=== PATIENT | male | born 1955 | race African-American/Black ===

== ENCOUNTER 2017-06-14 23:13 | Emergency (ER) | payer OTHER ==
[2017-06-14] MEDS ORDERED: DEXAMETHASONE SOD PHOS 20 MG/5 ML VIAL. (23:24)
[2017-06-14] MEDS: diphenhydrAMINE 50 MG/ML VIAL IVP (23:27)
[2017-06-14] MEDS: DEXAMETHASONE SOD PHOS 4 MG/ML VIAL IV ×2 (23:30)
[2017-06-14] MEDS: DEXAMETHASONE SOD PHOS 20 MG/5 ML VIAL. IV (23:30)
[2017-06-14] MEDS ORDERED: IPRATRPIUM/ALBUTEROL 0.5/2.5MG 3 ML NEBU. NEB (23:30)
[2017-06-14] MEDS ORDERED: EPINEPHrine SYRINGE 1 MG/10 ML SYRINGE IM (23:30)
[2017-06-14 23:31] LABS: ADD MAN DIFF? NO
[2017-06-14 23:34] LABS: BASO % 0 % (0-3); EOS # 0.2 x10^3/uL (0.0-0.7); EOS % 2 % (0-3); HEMATOCRIT 47.5 % (39.0-53.0); HEMOGLOBIN 15.9 g/dL (13.0-17.5); LYMPH # 1.4 x10^3/uL (1.0-4.8); LYMPH % 17 % (24-48); MEAN CORPUSCULAR HEMOGLOBIN 30 pg (25-35); MEAN CORPUSCULAR HGB CONC 33 g/dL (31-37); MEAN CORPUSCULAR VOLUME 89 fL (79-100); MONO # 0.7 x10^3/uL (0.0-1.1); MONO % 9 % (0-9); NEUT # 5.8 x10^3uL (1.8-7.7); NEUT % 72 % (31-73); PLATELET COUNT 105 x10^3/uL (140-400); RED BLOOD COUNT 5.36 x10^6/uL (4.30-5.70); RED CELL DISTRIBUTION WIDTH 14.6 % (11.5-14.5); WHITE BLOOD COUNT 8.1 x10^3/uL (4.0-11.0)
[2017-06-14] MEDS ORDERED: EPINEPHrine 1 MG/ML VIAL (23:34)
[2017-06-14] MEDS: EPINEPHrine 1 MG/ML VIAL IM (23:34)
[2017-06-14] MEDS: IV NORMAL SALINE 1000ML BAG 1,000 ML IV (23:41)
[2017-06-14 23:51] LABS: ANION GAP 14 (6-14); BLOOD UREA NITROGEN 12 mg/dL (8-26); BUN/CREATININE RATIO 11 (6-20); CALCIUM 9.4 mg/dL (8.5-10.1); CARBON DIOXIDE 25 mmol/L (21-32); CHLORIDE 100 mmol/L (98-107); CREATININE 1.1 mg/dL (0.7-1.3); GFR 68.3; GLUCOSE 100 mg/dL (70-99); POTASSIUM 3.7 mmol/L (3.5-5.1); SODIUM 139 mmol/L (136-145)
[2017-06-14 23:51] LABS: TROPONINI < 0.017 ng/mL (0.000-0.055)
[2017-06-14 23:56] LABS: ALBUMIN 3.6 g/dL (3.4-5.0); ALBUMIN/GLOBULIN RATIO 0.6 (1.0-1.7); ALK PHOS 112 U/L (46-116); ALT (SGPT) 27 U/L (16-63); AST (SGOT) 38 U/L (15-37); TOTAL BILIRUBIN 0.9 mg/dL (0.2-1.0); TOTAL PROTEIN 9.3 g/dL (6.4-8.2)
[2017-06-15] MEDS: IOHEXOL 300 MG/ML 100ML VIAL. IV (00:13)
[2017-06-15] MEDS ORDERED: CONTRAST GIVEN MC (00:15)
[2017-06-15] MEDS ORDERED: PIP/TAZO PER PHARMACY MC (01:15)
[2017-06-15] MEDS ORDERED: VANCOMYCIN PER PHARMACY MC (01:15)
[2017-06-15] MEDS: PIPERACILLIN/TAZO IV Push 4.5 GM VIAL. IVP (01:24)
[2017-06-15] MEDS: VANCOMYCIN 2 GM in IV DEXTROSE 5 %-0.2 % NACL 500 ML IV (01:29)
[2017-06-15 01:46] LABS: LACTIC ACID 1.3 mmol/L (0.4-2.0)
== END 2017-06-15 02:35 | disposition short-term general hospital (02) ==
LOC: ER 23:13
DX: R06.03 Acute respiratory distress (principal); R06.1 Stridor; J39.2 Other diseases of pharynx
CPT/HCPCS: 36415; 70491; 71045; 80053; 83605; 84484; 85025; 87040; 93005; 94640; 96361; 96365; 96372; 96375; 99285-25; J0171; J1100; J1200; J2543; J3370; J7030; Q9967